=== PATIENT | female | born 1985 | race Caucasian/White ===

== ENCOUNTER 2019-10-14 02:17 | Inpatient (IN) | payer BC, SELFPAY ==
[2019-10-13 08:23] VITALS: TEMP 36.4
[2019-10-13 09:53] VITALS: TEMP 36.3
[2019-10-14] VITALS (81 sets, daily range): BP systolic 70–125; BP diastolic 25–94; PULSE 46–96; RESP 16–18; TEMP 35.9–36.8; O2SAT 97–100; BMI 22.9
--- NOTE | 2019-10-14 03:45 | LDADM ---
This patient, Lucretia Daniel, was admitted to Labor/Delivery/Recovery 120 on 10/14/19 at 02:17. Plans for labor, pain management and were discussed with patient. Patient/family oriented to hospital policies and general routines including ID bracelet, bed and alarms, visiting hours, pain management, procedures, bathroom and other care routines, personal items, smoking policy, room service/diet and guest tray routines, security routines, and visiting hours. Patient/Family are encouraged to report perceived risks to care and to ask questions if they do not understand what they are told or what they should do. See OBIX for further documentation.
[2019-10-14 03:59] LABS: Basophils Percent Auto 0.5 % (0.2-1.2); Eosinophils Absolute Auto 0.2 K/mm3 (0-0.3); Eosinophils Percent Auto 2.4 % (0-4.4); Hematocrit 36.5 % (37.0-47.0); Hemoglobin 12.1 g/dL (12.0-15.0); Immature Granulocyte Absolute 0.03 K/mm3 (0.00-0.031); Immature Granulocyte Percent A 0.4 % (0-0.5); Lymphocytes Absolute Auto 0.94 K/mm3 (0.9-3.2); Lymphocytes Percent Auto 11.7 % (18.3-44.2); Mean Corpuscular HGB Conc 33.2 g/dl (32-36); Mean Corpuscular Hemoglobin 32.4 pg (26-34); Mean Corpuscular Volume 97.9 fl (80-100); Mean Platelet Volume 10.3 fl (7.4-10.4); Monocytes Absolute Auto 0.7 K/mm3 (0.1-0.6); Monocytes Percent Auto 8.8 % (2.6-8.5); Neutrophils Absolute Auto 6.1 K/mm3 (1.3-6.7); Neutrophils Percent Auto 76.2 % (45.5-73.1); Platelet Count Result 216 k/mm3 (150-375); Red Blood Count 3.73 M/mm3 (4.2-5.4); Red Cell Distribution Width 13.6 % (11.5-14.5); White Blood Count 8.1 K/mm3 (4.5-10.0)
[2019-10-14] MEDS: LACTATED RINGERS 1,000 ML 125 ML IV CONT (05:20)
[2019-10-14] MEDS: ceFAZolin 2 GM/D5W 50 ML 2 GM/50 ML BAG IVPB ×2 (05:48→07:31)
--- NOTE | 2019-10-14 07:15 | WPDANESEPPF ---
Anes - Initial Pre Proc Eval Procedure: Operation Date: 10/16/19 12:00 Proposed Procedures p Repeat Section - Lalo Adams MD Date/Time: 10/14/19 07:15 Surgeon: Lalo Adams MD Pre Op Diagnosis: Leaking Patient Data Age: 34 Gender: F Height: 5 ft 9 in Weight: 70.5 kg Last Vital Signs Pulse 96 10/14/19 06:31 BP 117/81 10/14/19 06:31 Allergies Allergy/AdvReac Type Severity Reaction Status Date / Time pollen extracts Allergy Wheezing Verified 09/24/19 14:49 Home Medications Medication Instructions Recorded Confirmed Type albuterol sulfate 2 puff INHALATION QID PRN 09/24/19 09/24/19 History levothyroxine 100 mcg PO DAILY 09/24/19 09/24/19 History Laboratory Tests 10/14/19 10/14/19 10/14/19 03:53 03:53 03:53 WBC 8.1 K/mm3 K/mm3 (4.5-10.0) RBC 3.73 M/mm3 L M/mm3 (4.2-5.4) Hgb 12.1 g/dL g/dL (12.0-15.0) Hct 36.5 % L % (37.0-47.0) MCV 97.9 fl fl (80-100) MCH 32.4 pg pg (26-34) MCHC 33.2 g/dl g/dl (32-36) RDW 13.6 % % (11.5-14.5) Plt Count 216 k/mm3 k/mm3 (150-375) MPV 10.3 fl fl (7.4-10.4) Immature Gran % (Auto) 0.4 % % (0-0.5) Neut % (Auto) 76.2 % H % (45.5-73.1) Lymph % (Auto) 11.7 % L % (18.3-44.2) [place] % (Auto) 8.8 % H % (2.6-8.5) Eos % (Auto) 2.4 % % (0-4.4) Baso % (Auto) 0.5 % % (0.2-1.2) Lymph # (Auto) 0.94 K/mm3 K/mm3 (0.9-3.2) [place] # (Auto) 0.7 K/mm3 H K/mm3 (0.1-0.6) Eos # (Auto) 0.2 K/mm3 K/mm3 (0-0.3) Baso # (Auto) 0.0 K/mm3 K/mm3 (0.0-0.1) Abs Immat Gran (auto) 0.03 K/mm3 K/mm3 (0.00-0.031) Absolute Neuts (auto) 6.1 K/mm3 K/mm3 (1.3-6.7) Absolute Nucleated RBC 0.0 K/mm3 K/mm3 (0.0-0.012) Nucleated RBC % 0.0 % % (0.0-0.2) RPR Pending Blood Type A Positive Antibody Screen Negative Patient hx anesthesia problems: none Family hx anesthesia problems: none PMFSH Past Medical History Medical History (Updated 10/14/19 @ 07:15 by Johnny Reyes MD) Hypothyroidism Surgical History Surgical History (Updated 10/14/19 @ 07:16 by Johnny Reyes MD) History of section Family History Family History Mother Parkinsons Social History Social History Smoking status: Former smoker Second hand tobacco smoke exposure: No Gender identity (if verbalized by the patient): Female Spiritual care concerns: No Anes - Eval Final PreProcedure Day of Procedure 10/14/19 07:15 Patient weight: normal Heart: regular rate and rhythm Lungs: clear to auscultation Airway: Mallampati scale class II Neurological: alert and oriented Last oral intake: >/= 8 hours ASA classification: II Emergent: no Anesthetic plan: proceed Anesthesia type and monitoring: regional spinal and standard monitoring Informed Consent: The patient's anesthetic plan and its attendant risks and benefits were discussed with the patient/family/POA. Questions were solicited and answers provided to the satisfaction of the patient/family/POA.
--- NOTE | 2019-10-14 07:31 | WPDOBADMIT ---
Obstetrics - Admit Note Admission Note: record reviewed. Additions to the history and/or subsequent changes in the physical findings follow. 34 y/o at 38 6/7 weeks here with gush of clear fluid. SROM confirmed here. GBS pos. AVSS NST reactive TOCO: Contractions every 2-3 min ABD soft, nontender, gravid, vertex EXT nontender Cervix closed. Gross ROM. A: IUP at term with SROM, GBS pos. Prior , desires repeat. P: Offered repeat CS. Reviewed risks, benefits, alternatives in detail. She understands and elects to proceed.
--- NOTE | 2019-10-14 07:33 | PM.IMHP ---
H&P: HPI History of Present Illness Chief complaint: Leaking Narrative: 34 y/o at 38 6/7 weeks here with SROM. GBS pos. Review of Systems Review of Systems: All systems reviewed & are unremarkable except as noted in HPI and below PMFSH Past Medical History Medical History Hypothyroidism Surgical History Surgical History History of section Family History Family History Mother Parkinsons Social History Social History Smoking status: Former smoker Second hand tobacco smoke exposure: No Gender identity (if verbalized by the patient): Female Spiritual care concerns: No Comments Past OB: Prior CS twins after SROM at 36 weeks. SAB resulting in D&C. Meds Home Medications and Allergies Home Medications Medication Instructions Recorded Confirmed Type albuterol sulfate 2 puff INHALATION QID PRN 09/24/19 09/24/19 History levothyroxine 100 mcg PO DAILY 09/24/19 09/24/19 History Allergies Allergy/AdvReac Type Severity Reaction Status Date / Time pollen extracts Allergy Wheezing Verified 09/24/19 14:49 Vital Signs Vital Signs - 24 hr 10/14/19 02:46 10/14/19 03:01 10/14/19 03:16 Pulse Rate 69 67 66 Blood Pressure 107/73 113/79 117/74 10/14/19 03:31 10/14/19 04:01 10/14/19 04:16 Pulse Rate 67 79 66 Blood Pressure 124/79 113/73 110/77 10/14/19 04:46 10/14/19 05:01 10/14/19 05:16 Pulse Rate 77 69 67 Blood Pressure 101/69 102/61 125/73 10/14/19 05:31 10/14/19 05:45 10/14/19 06:02 Pulse Rate 71 71 64 Blood Pressure 85/55 L 104/70 116/76 10/14/19 06:17 10/14/19 06:31 Pulse Rate 70 96 Blood Pressure 99/61 L 117/81 Exam Const: Orientation/consciousness: patient oriented x3 Other: Well-developed, well-nourished female in no acute distress. Neck: Thyroid: thyroid normal Lymphatic: no lymphadenopathy noted (in neck, axilla or inguinal nodes) Resp: Effort & Inspection: normal respiratory effort Auscultation: clear to auscultation bilaterally Cardio: Rate: regular rate Rhythm: regular rhythm Heart sounds: S1 normal heart sound present and S2 normal heart sound present GI: Other: ABD: Soft, nontender, nondistended. Gravid. NST reactive. TOCO: contractions every 2-3 min. : General: Yes no CVA tenderness Other: Cervix closed / thick. Gross ROM. Back/Spine/Pelvis: Back: no CVA tenderness Skin: General skin exam: normal color and no rashes or lesions noted Neuro: General: patient oriented x3 Extrem: Other: Extremities: nontender with no edema Psych: Mental Status: mental status grossly normal Affect: normal affect H&P: Results Labs Labs: Short CBC 10/14/19 Range/Units 03:53 WBC 8.1 (4.5-10.0) K/mm3 Hgb 12.1 (12.0-15.0) g/dL Hct 36.5 L (37.0-47.0) % Plt Count 216 (150-375) k/mm3 Assessment and Plan Assessment and plan (1) SROM (spontaneous rupture of membranes): Status: Acute Assessment and Plan: Offered repeat . She understands risks of surgery to include risks of anesthesia, risks of pain, infection, bleeding, blood products, thromboembolic phenomena and damage to adjacent structures such as bowel, bladder, ureters, blood vessels and nerves. She understands all these risks and elects to proceed with surgery. (2) GBS bacteriuria: Code(s): R82.71 - Bacteriuria Status: Acute
--- NOTE | 2019-10-14 08:21 | P.PCNOB_ITS ---
OB - Delivery Note Procedure Delivery date: 10/14/19 Procedure: Procedures Operation Date: 10/16/19 12:00 <No data on this case meets the specified criteria> Specimen: Yes (cord blood) Estimated blood loss (mL): 575 Anesthesia type: Spinal Disposition: PACU Complications: None Narrative: The patient was taken to the operating room where she was prepared and draped in the usual sterile fashion in dorsal supine position with a leftward tilt. She received cefazolin preoperatively. Spinal anesthesia was found to be adequate. A Pfannenstiel skin incision was made, excising the previous scar. The incision was carried through to the underlying layer of the fascia. The fascia was incised in the midline and the incision was extended laterally. The fascia was dissected free of the underlying rectus muscles. The rectus muscles were in the midline. The peritoneum was identified, tented up and entered sharply. The peritoneal incision was extended superiorly and inferiorly with good visualization of the bladder. The bladder blade was placed. The vesicouterine peritoneum was identified, tented up and entered sharply. The incision was extended laterally and the bladder flap was developed. The bladder blade was replaced. The uterus was then incised sharply in a transverse fashion along the lower uterine segment. The incision was extended laterally. The infant's head was delivered atraumatically to the sterile field, followed by the body. The nose and mouth were bulb suctioned. After a delay, the cord was clamped and cut. The infant was handed off the field. Cord blood was collected. The placenta was removed manually and was passed off the field. The uterus was exteriorized and cleared of all clots and debris. The uterine incision was reapproximated using 0 Monocryl in a running, locked fashion. Excellent hemostasis resulted as did excellent reapproximation of the normal anatomy. The uterus was returned the abdomen. The pelvis was irrigated copiously with warmed normal saline. Rigorous hemostasis was assured. The fascial layer was reapproximated using 0 Vicryl in a running fashion. The skin was closed with a running, subcuticular stitch of 4 0 Vicryl. Dermaflex was applied externally. Sponge, lap, needle and instrument counts were correct. The patient was taken to the recovery room in stable condition. The infant went to the nursery in stable condition. I was present and scrubbed the entire procedure. [place] Baby Date of : 10/14/19 Time of : 07:54 Weeks of gestation at delivery: 38 Infant gender: Male Weight (pounds): 7 Weight (ounces): 10 Placenta delivery description: Manual Removal and Normal Configuration cord vessel description: 3 Vessels score one minute: 9 score five minutes: 9
--- NOTE | 2019-10-14 08:25 | PM.OBDSVD ---
DS: Diagnosis Admitting Diagnosis Admitting Diagnosis: SROM Discharge Diagnosis (1) GBS bacteriuria: Code(s): R82.71 - Bacteriuria Status: Acute (2) History of section: Code(s): Z98.891 - History of uterine scar from previous surgery Status: Acute (3) SROM (spontaneous rupture of membranes): Status: Acute OB - DS: Summary OB Procedures : None OB Procedures Intrapartum: OB Procedures: : None Peripartum Data Procedures: Procedures Operation Date: 10/16/19 12:00 <No data on this case meets the specified criteria> Time Spent with Patient Time attestation: Total time spent providing and/or coordinating discharge services: DS: Data Data Completed and Pending Labs on day of discharge: Labs from last 24 hours 10/14/19 10/14/19 10/14/19 03:53 03:53 03:53 WBC 8.1 RBC 3.73 L Hgb 12.1 Hct 36.5 L MCV 97.9 MCH 32.4 MCHC 33.2 RDW 13.6 Plt Count 216 MPV 10.3 Immature Gran % (Auto) 0.4 Neut % (Auto) 76.2 H Lymph % (Auto) 11.7 L [place] % (Auto) 8.8 H Eos % (Auto) 2.4 Baso % (Auto) 0.5 Lymph # (Auto) 0.94 [place] # (Auto) 0.7 H Eos # (Auto) 0.2 Baso # (Auto) 0.0 Abs Immat Gran (auto) 0.03 Absolute Neuts (auto) 6.1 Absolute Nucleated RBC 0.0 Nucleated RBC % 0.0 RPR Pending Blood Type A Positive Antibody Screen Negative Discharge Plan Discharge Attending physician on discharge: Lalo Adams Discharging Clinician: Lalo Adams Patient Disposition: Home, Self-Care Activity: may shower, may drive after 2 weeks and pelvic rest Diet: regular Wound Care Instructions: incision open to air Discharge Instructions: Call or return if temperature above 100.4? F, increased abdominal pain, increased vaginal bleeding or any new problems. Stand Alone Forms: General Discharge Information Follow-up/Referrals: Lalo Adams MD [Physician] - (4 weeks) Discharge Medications: New ibuprofen 600 mg tablet 600 mg PO Q6H PRN (Reason: cramps) Qty: 30 RF: 0 hydrocodone-acetaminophen [[place]] 5-325 mg tablet 1 - 2 tablet PO Q6H PRN (Reason: pain) Qty: 30 RF: 0 No Action levothyroxine 100 mcg Tablet 100 mcg PO DAILY RF: 0 albuterol sulfate 90 mcg/actuation Hfa Aerosol Inhaler 2 puff INHALATION QID PRN (Reason: wheezing) RF: 0 Date of admission: 10/14/19 02:17 Primary Care Provider: Sathya Albert Admitting Provider: Lalo Adams Attending physician on admission: Lalo Adams
[2019-10-14] MEDS: OXYTOCIN 30 UNITS/NS 500 ML 30 UNITS/500 ML BAG 125 UNITS IV CONT (10:14)
[2019-10-14 10:31] LABS: Rapid Plasma Reagin Non-Reactive (NonReactive)
[2019-10-14] MEDS: KETOROLAC 30 MG/ML VIAL (*BKC) IV PUSH ×2 (11:58→18:23)
[2019-10-14] MEDS: MORPHINE SULFATE 4 MG/ML INJ IV PUSH ×2 (11:58→15:47)
--- NOTE | 2019-10-14 13:32 | PC.NURSE ---
Patient transferred to post room #291 via per stretcher. Support person present. Oriented to unit, room, information board, rooming in, admission packet and security measures. Patient verbalizes understanding.
[2019-10-14] MEDS: SIMETHICONE 80 MG TAB.CHEW PO (15:48)
[2019-10-14] MEDS: DOCUSATE SODIUM 100 MG CAPSULE PO (15:48)
--- NOTE | 2019-10-14 15:55 | PC.NURSE ---
Consulted with patient, mother reports infant is eagerly latching without difficulties or discomfort. . Both nipples are clear no reddened areas. Nipple care reviewed. Reviewed feeding cues, frequencies, duration of feedings, feeding elimination flow sheet, and signs of adequate intake. Requested mother to call out for RN assistance if she is unable to latch infant for feeding or she has discomfort with nursing. Instructed feeding should be initiated three hours from start of last feeding or if feeding cues are noted before. Mother voiced understanding of information shared.
[2019-10-15] MEDS: KETOROLAC 30 MG/ML VIAL (*BKC) IV PUSH ×2 (00:22→07:24)
[2019-10-15 00:30] VITALS: BP 92/58; PULSE 64; RESP 16; TEMP 36.1; O2SAT 100
[2019-10-15 04:20] VITALS: BP 101/65; PULSE 54; RESP 16; TEMP 36.2; O2SAT 100
[2019-10-15 05:37] LABS: Basophils Absolute Auto 0.1 K/mm3 (0.0-0.1); Basophils Percent Auto 0.6 % (0.2-1.2); Eosinophils Absolute Auto 0.4 K/mm3 (0-0.3); Eosinophils Percent Auto 4.7 % (0-4.4); Immature Granulocyte Absolute 0.02 K/mm3 (0.00-0.031); Immature Granulocyte Percent A 0.3 % (0-0.5); Lymphocytes Absolute Auto 1.05 K/mm3 (0.9-3.2); Lymphocytes Percent Auto 13.2 % (18.3-44.2); Mean Corpuscular HGB Conc 32.3 g/dl (32-36); Mean Corpuscular Hemoglobin 32.7 pg (26-34); Mean Corpuscular Volume 101.3 fl (80-100); Mean Platelet Volume 10.4 fl (7.4-10.4); Monocytes Absolute Auto 0.4 K/mm3 (0.1-0.6); Monocytes Percent Auto 5.5 % (2.6-8.5); Neutrophils Percent Auto 75.7 % (45.5-73.1); Platelet Count Result 200 k/mm3 (150-375); Red Blood Count 3.06 M/mm3 (4.2-5.4); Red Cell Distribution Width 13.9 % (11.5-14.5); White Blood Count 7.9 K/mm3 (4.5-10.0)
[2019-10-15 07:20] VITALS: BP 95/64; PULSE 76; RESP 16; TEMP 36.8; O2SAT 99
[2019-10-15] MEDS: MULTIVIT/MIN/PREN/FOL AC/IRON TABLET 1 TAB PO (07:23)
[2019-10-15] MEDS: DOCUSATE SODIUM 100 MG CAPSULE PO ×2 (07:25→17:03)
[2019-10-15] MEDS: SIMETHICONE 80 MG TAB.CHEW PO ×2 (11:01→17:02)
--- NOTE | 2019-10-15 11:39 | WPDANLDPN2 ---
Anes-Prog Note L&D Date/Time: 10/15/19 11:39 Comfortable throughout: labor Neuraxial method: epidural Epidural/Spinal procedure site: clean & non-tender Neuro status: Neuro function grossly intact. Cardiovascular status: normal Respiratory status: normal Airway patency: baseline Mental status: baseline Post-Op hydration status: normal Vital Signs: Last Vital Signs Temp 98.2 F 10/15/19 07:20 Pulse 76 10/15/19 07:20 Resp 16 10/15/19 07:20 BP 95/64 L 10/15/19 07:20 Pulse Ox 99 10/15/19 07:20 I/O: Intake & Output 10/14/19 10/15/19 10/15/19 23:59 07:59 15:59 Intake Total 2300 1150 Output Total 2900 1400 Balance -600 -250 Post-procedural complaints: none Patient feedback: Patient satisfied with anesthetic care.
--- NOTE | 2019-10-15 11:40 | WPDANLDNPN2 ---
Anes-Prog Note L&D-Neuraxial Date/Time: 10/15/19 11:40 Neuraxial medications: intrathecal PF morphine Opiod-related complaints: none Patient feedback: Patient satisfied with post-operative pain management.
--- NOTE | 2019-10-15 13:28 | P.PNOB_ITS ---
OB - PN: Subj Subjective Date/time seen: 10/15/19 13:28 Narrative: Pain OK. Tolerating diet. Desires circumcision for son. OB - PN: Obj Data Labs CBC & Chem 7: 10/15/19 04:28 Labs: Laboratory Results - last 24 hr 10/15/19 04:28 WBC 7.9 RBC 3.06 L Hgb 10.0 L Hct 31.0 L MCV 101.3 H MCH 32.7 MCHC 32.3 RDW 13.9 Plt Count 200 MPV 10.4 Immature Gran % (Auto) 0.3 Neut % (Auto) 75.7 H Lymph % (Auto) 13.2 L [place] % (Auto) 5.5 Eos % (Auto) 4.7 H Baso % (Auto) 0.6 Lymph # (Auto) 1.05 [place] # (Auto) 0.4 Eos # (Auto) 0.4 H Baso # (Auto) 0.1 Abs Immat Gran (auto) 0.02 Absolute Neuts (auto) 6.0 Absolute Nucleated RBC 0.0 Nucleated RBC % 0.0 OB - PN A/P Plan Comments: A: POD#1, doing well. P: Routine care. Reviewed circ. Exam Psych: Other: AVSS I/O OK ABD soft, nontender, fundus firm. Incision c/d/i. EXT nontender
[2019-10-15] MEDS: IBUPROFEN 600 MG TABLET PO ×2 (14:28→20:29)
[2019-10-15 18:57] VITALS: BP 90/63; PULSE 68; RESP 18; TEMP 36.3; O2SAT 98
[2019-10-16] MEDS: IBUPROFEN 600 MG TABLET PO ×2 (03:05→10:29)
[2019-10-16] MEDS: MULTIVIT/MIN/PREN/FOL AC/IRON TABLET 1 TAB PO (07:07)
[2019-10-16 07:25] VITALS: BP 105/69; PULSE 68; RESP 16; TEMP 36.2; O2SAT 100
--- NOTE | 2019-10-16 09:20 | PM.OBPNVD ---
OB - PN: Subj Subjective Date/time seen: 10/16/19 09:20 Narrative: Pain OK. Tolerating diet. Would like to go home. OB - PN: Obj Data Labs CBC & Chem 7: 10/15/19 04:28 OB - PN A/P Plan Comments: A: POD#2, doing well. P: Home to f/u 4 weeks. Exam Psych: Other: AVSS ABD soft, nontender, fundus firm. Incision c/d/i. EXT nontender
--- NOTE | 2019-10-16 10:45 | PC.NURSE ---
Mother is able to independently latch infant with appropriate positioning/alignment. She denies any nipple discomfort, is feeding as required and waking to feed if needed. has had 8 effective feedings in the past 24 hours, and is currently meeting outcomes for weight, output, jaundice and feeding frequencies. Mother states she feels confident to continue effective at home. Reviewed transition to breast milk, signs of adequate intake, and engorgement/relief. Instructed to call ICP if intake/output less than required. Reviewed regular medications mother is taking. Information provided per Ashley. Reviewed community resources on the [facility] website and in the Mom/Baby guide. Information on outpatient services provided. Mother has no further questions at this time.
[2019-10-17 08:36] VITALS: BP 109/63; PULSE 72; RESP 18; TEMP 36.8
== END 2019-10-16 11:30 | disposition home or self-care (01) | DRG 788 ==
LOC: ANHLDR 08:27 → ANHOB2 11:12
PROVIDERS: Admitting Provider Obstetrics & Gynecology; PCP Emergency Medicine; Visit Provider Obstetrics & Gynecology
PROC: 10D00Z1 Extraction of Products of Conception, Low, Open Approach (ICD-10-PCS; CPT 59514; principal; 2019-10-14 07:30)
DX: O34.211 Maternal care for low transverse scar from previous cesarean delivery (principal); Z37.0 Single live birth; O99.284 Endocrine, nutritional and metabolic diseases complicating childbirth; E03.9 Hypothyroidism, unspecified; O99.824 Streptococcus B carrier state complicating childbirth; Z87.891 Personal history of nicotine dependence; Z3A.38 38 weeks gestation of pregnancy
CPT/HCPCS: 36415; 85025; 86592; 86850; 86900; 86901; A9270; J0131; J0690; J1885; J2270; J2274; J2590; J3010; J7120

== ENCOUNTER → 2019-10-23 15:45 | Outpatient (CLI) | payer BC, SELFPAY ==
--- NOTE | ~2019-10-23 | US_ITS ---
US thyroid INDICATION: Hypothyroidism TECHNIQUE: Real-time sonographic images of the thyroid gland were obtained. COMPARISON: No prior studies for comparison. FINDINGS: The right thyroid lobe measures 4.3 x 1.1 x 1.2 cm. The left thyroid lobe measures 4 x 1.9 x 0.8 cm. There is normal echotexture and echogenicity throughout the thyroid gland. No discrete nod ules identified. Normal vascular flow is present. IMPRESSION: 1. Normal thyroid without discrete nodule or abnormal vascularity. Reviewed, dictated and finalized at location A.
== END ==
PROVIDERS: PCP Emergency Medicine; Visit Provider Emergency Medicine
DX: E03.9 Hypothyroidism, unspecified (principal)
CPT/HCPCS: 76536

== ENCOUNTER 2020-10-04 08:01 | Outpatient (RCR) | payer BC, SELFPAY ==
[2020-09-12 12:26] VITALS: BP 99/58; PULSE 81
[2020-09-27 08:48] VITALS: BP 101/69; PULSE 65
[2020-10-04 08:24] VITALS: BP 94/65; PULSE 80
== END 2020-10-16 07:14 | disposition home or self-care (01) ==
LOC: ANHOBOP 08:01
PROVIDERS: PCP Emergency Medicine; Visit Provider Obstetrics & Gynecology
DX: O30.003 Twin pregnancy, unspecified number of placenta and unspecified number of amniotic sacs, third trimester (principal); Z3A.33 33 weeks gestation of pregnancy; Z3A.35 35 weeks gestation of pregnancy; Z3A.36 36 weeks gestation of pregnancy
CPT/HCPCS: 59025

== ENCOUNTER 2020-10-08 11:22 | Observation (INO) | payer BC, SELFPAY ==
[2020-10-08 11:40] VITALS: BMI 24.5
--- NOTE | 2020-10-08 12:00 | OBADM ---
This patient, Lucretia Daniel, admitted to the OB room 103 at 1122 for observation for contractions. Patient/family oriented to hospital policies and general routines including ID bracelet, bed and alarms, visiting hours, pain management, procedures, bathroom and other care routines, personal items, smoking policy, room service/diet, and visiting hours. Patient/Family are encouraged to report perceived risks to care and to ask questions if they do not understand what they are told or what they should do.
[2020-10-08 12:30] VITALS: TEMP 36.3
--- NOTE | 2020-10-13 13:39 | PM.OBTRLD ---
OB - Triage/Final Diagnosis Visit Information Comments/Additional reasons for admission: I have assessed the risk for this patient, Lucretia Daniel, and determined that she would benefit from observation care. Final Diagnosis (1) contractions: Code(s): O47.9 - False labor, unspecified Status: Acute
== END 2020-10-08 13:18 | disposition home or self-care (01) ==
PROVIDERS: Admitting Provider Obstetrics & Gynecology; PCP Emergency Medicine; Visit Provider Obstetrics & Gynecology
DX: O47.1 False labor at or after 37 completed weeks of gestation (principal); Z3A.37 37 weeks gestation of pregnancy
CPT/HCPCS: G0378; G0379

== ENCOUNTER 2020-10-14 11:53 | Outpatient (CLI) | payer BC, SELFPAY ==
[2020-10-14 12:30] LABS: Basophils Percent Auto 0.5 % (0.2-1.2); Eosinophils Absolute Auto 0.1 K/mm3 (0-0.3); Eosinophils Percent Auto 1.8 % (0-4.4); Hematocrit 35.8 % (37.0-47.0); Hemoglobin 11.9 g/dL (12.0-15.0); Immature Granulocyte Absolute 0.02 K/mm3 (0.00-0.031); Immature Granulocyte Percent A 0.3 % (0-0.5); Lymphocytes Absolute Auto 0.87 K/mm3 (0.9-3.2); Lymphocytes Percent Auto 13.1 % (18.3-44.2); Mean Corpuscular HGB Conc 33.2 g/dl (32-36); Mean Corpuscular Hemoglobin 32.7 pg (26-34); Mean Corpuscular Volume 98.4 fl (80-100); Mean Platelet Volume 10.5 fl (7.4-10.4); Monocytes Absolute Auto 0.5 K/mm3 (0.1-0.6); Monocytes Percent Auto 7.9 % (2.6-8.5); Neutrophils Absolute Auto 5.1 K/mm3 (1.3-6.7); Neutrophils Percent Auto 76.4 % (45.5-73.1); Platelet Count Result 173 k/mm3 (150-375); Red Blood Count 3.64 M/mm3 (4.2-5.4); Red Cell Distribution Width 13.5 % (11.5-14.5); White Blood Count 6.6 K/mm3 (4.5-10.0)
[2020-10-14 13:26] LABS: Rapid Plasma Reagin Non-Reactive (NonReactive)
== END 2020-10-14 11:54 | disposition home or self-care (01) ==
LOC: ANHLAB 11:56
PROVIDERS: PCP Emergency Medicine; Visit Provider Obstetrics & Gynecology
DX: Z01.818 Encounter for other preprocedural examination (principal)
CPT/HCPCS: 36415; 85025; 86592; 86850; 86900; 86901

== ENCOUNTER 2020-10-15 09:51 | Inpatient (IN) | payer BC, SELFPAY ==
[2020-10-15] VITALS (63 sets, daily range): BP systolic 82–163; BP diastolic 46–107; PULSE 35–97; RESP 12–20; TEMP 36.1–36.7; O2SAT 92–100; BMI 24.7
[2020-10-15] MEDS: LACTATED RINGERS 1,000 ML 125 ML IV CONT (10:27)
--- NOTE | 2020-10-15 10:37 | WPDANESEPPF ---
Anes - Initial Pre Proc Eval Procedure: Operation Date: 10/15/20 12:00 Proposed Procedures p Repeat Section With Bilateral Tubal Ligation With Fallopian Rings - Lalo Adams MD Date/Time: 10/15/20 10:37 Surgeon: Lalo Adams MD Pre Op Diagnosis: c/s Patient Data Age: 35 Gender: F Height: 1.75 m Weight: 76 kg Last Vital Signs Pulse 81 10/15/20 10:15 BP 103/81 10/15/20 10:15 Pulse Ox 100 10/15/20 10:35 Allergies Allergy/AdvReac Type Severity Reaction Status Date / Time pollen extracts Allergy Wheezing Verified 09/24/19 14:49 Home Medications Medication Instructions Recorded Confirmed Type albuterol sulfate 2 puff INHALATION QID PRN 09/24/19 10/08/20 History levothyroxine 100 mcg PO DAILY 09/24/19 10/08/20 History PNV cmb#95-ferrous fumarate-FA 1 tablet PO DAILY 09/27/20 10/08/20 History [] cholecalciferol (vitamin D3) 5,000 unit PO PRN PRN 09/27/20 10/08/20 History [Vitamin D3] Laboratory Tests 10/15/20 10:16 HIV 1&2 Ab/P24 Ag 4thGn Pending Patient hx anesthesia problems: none Family hx anesthesia problems: none PMFSH Past Medical History Medical History (Updated 10/15/20 @ 10:37 by Miles Sorto MD) Asthma Hypothyroidism Surgical History Surgical History (Updated 10/14/19 @ 07:36 by Lalo Adams MD) History of section Family History Family History Mother Parkinsons Social History Social History Smoking status: Former smoker Second hand tobacco smoke exposure: No Substance use: former Gender identity (if verbalized by the patient): Female Spiritual care concerns: No Anes - Eval Final PreProcedure Day of Procedure 10/15/20 10:37 Patient weight: overweight Heart: regular rate and rhythm Lungs: clear to auscultation and normal air movement Airway: Mallampati scale class II Neurological: alert and oriented Last oral intake: >/= 8 hours ASA classification: II Emergent: no Anesthetic plan: proceed Anesthesia type and monitoring: regional spinal Informed Consent: The patient's anesthetic plan and its attendant risks and benefits were discussed with the patient/family/POA. Questions were solicited and answers provided to the satisfaction of the patient/family/POA.
--- NOTE | 2020-10-15 10:49 | LDADM ---
This patient, Lucretia Daniel, was admitted to Labor/Delivery/Recovery 120 on 10/15/20 at 09:51. Plans for labor, pain management and were discussed with patient. Patient/family oriented to hospital policies and general routines including ID bracelet, bed and alarms, visiting hours, pain management, procedures, bathroom and other care routines, personal items, smoking policy, room service/diet and guest tray routines, infant security routines,call light, and visiting hours. Patient/Family are encouraged to report perceived risks to care and to ask questions if they do not understand what they are told or what they should do. See OBIX for further documentation.
[2020-10-15 11:23] LABS: HIV 1/2 Ab P24 Ag Result Negative (Negative)
--- NOTE | 2020-10-15 11:42 | PM.IMHP ---
H&P: HPI History of Present Illness Date/Time: 10/15/20 11:42 35 y/o at 38 weeks with di/di twins, prior . Here for repeat LTCS, also desiring permanent contraception with concurrent tubal ligation. Good movement. Rare contractions. GBS bacteruria. Chief Complaint: Here for c section Review of Systems Review of Systems: All systems reviewed & are unremarkable except as noted in HPI and below PMFSH Past Medical History Medical History Asthma Hypothyroidism Surgical History Surgical History History of section Family History Family History Mother Parkinsons Social History Social History Smoking status: Never smoker Second hand tobacco smoke exposure: No Substance use: former Gender identity (if verbalized by the patient): Female Spiritual care concerns: No Meds Home Medications and Allergies Home Medications Medication Instructions Recorded Confirmed Type albuterol sulfate 2 puff INHALATION QID PRN 09/24/19 10/08/20 History levothyroxine 100 mcg PO DAILY 09/24/19 10/08/20 History PNV cmb#95-ferrous fumarate-FA 1 tablet PO DAILY 09/27/20 10/08/20 History [] cholecalciferol (vitamin D3) 5,000 unit PO PRN PRN 09/27/20 10/08/20 History [Vitamin D3] Allergies Allergy/AdvReac Type Severity Reaction Status Date / Time pollen extracts Allergy Wheezing Verified 09/24/19 14:49 Vital Signs Vital Signs - 24 hr 10/15/20 10:11 10/15/20 10:13 10/15/20 10:15 Temperature Pulse Rate 87 81 Blood Pressure 82/46 L 103/81 Pulse Oximetry 100 10/15/20 10:16 10/15/20 10:21 10/15/20 10:25 Temperature Pulse Rate Blood Pressure Pulse Oximetry 100 100 100 10/15/20 10:30 10/15/20 10:35 10/15/20 10:40 Temperature Pulse Rate Blood Pressure Pulse Oximetry 100 100 100 10/15/20 10:45 10/15/20 10:50 10/15/20 10:55 Temperature Pulse Rate Blood Pressure Pulse Oximetry 100 100 100 10/15/20 11:28 Temperature 36.5 C Pulse Rate Blood Pressure Pulse Oximetry Exam Const: Orientation/consciousness: patient oriented x3 Other: Well-developed, well-nourished female in no acute distress. Neck: Thyroid: thyroid normal Lymphatic: no lymphadenopathy noted (in neck, axilla or inguinal nodes) Resp: Effort & Inspection: normal respiratory effort Auscultation: clear to auscultation bilaterally Cardio: Rate: regular rate Rhythm: regular rhythm Heart sounds: S1 normal heart sound present and S2 normal heart sound present GI: Other: ABD: Soft, nontender, nondistended, gravid. FHR x 2. No guarding or rebound tenderness. No hepatosplenomegaly. : General: Yes no CVA tenderness Other: Cervix closed, thick. Back/Spine/Pelvis: Back: no CVA tenderness Skin: General skin exam: normal color and no rashes or lesions noted Neuro: General: patient oriented x3 Extrem: Other: Extremities: nontender with no edema Psych: Mental Status: mental status grossly normal Affect: normal affect Assessment and Plan Assessment and plan (1) History of section: Code(s): Z98.891 - History of uterine scar from previous surgery Status: Acute Assessment and Plan: A: 1) IUP at 38 weeks with di/di twins, prior , desires repeat. 2) Desired sterility 3) GBS bacteruria. P: Repeat LTCS with BTL. Cover GBS with antibiotic. She understands there are temporary methods of contraception available to her. She understands that there are nonsurgical options as well as surgical options. She understands that tubal ligation will render her permanently sterile. She understands that there is a failure rate associated with tubal ligation, as well as an inherent ectopic gestation
--- NOTE | 2020-10-15 11:55 | WPDHPUPDATE1 ---
History and Physical Update Update Date/Time: 10/15/20 11:55 History and Physical has been reviewed, including an updated exam of the patient. There are NO changes in the patient's condition. Risks, benefits, and alternatives have been discussed and questions answered. Patient agrees to proceed with procedure.
[2020-10-15] MEDS: LACTATED RINGERS 250 ML 999 ML IVPB (11:57)
[2020-10-15] MEDS: ceFAZolin 2 GM/D5W 50 ML 2 GM/50 ML BAG IVPB (11:59)
--- NOTE | 2020-10-15 13:14 | PM.OBPRVD ---
OB - Delivery Note Procedure Delivery date: 10/15/20 Procedure: Procedures Operation Date: 10/15/20 12:00 <No data on this case meets the specified criteria> Repeat low transverse delivery with concurrent bilateral tubal ligation via modified Wakefield technique Delivery monitor: external FHT and external uterine Route of delivery: Specimen: Yes (cord blood, placentas, segments of bilateral Fallopian tubes) Quantitative Blood Loss (ml): 600 Anesthesia type: Spinal Disposition: PACU Complications: None Narrative: The patient was taken to the operating room where she was prepared and draped in the usual sterile fashion in dorsal supine position with a leftward tilt. She received cefazolin preoperatively. Spinal anesthesia was found to be adequate. A Pfannenstiel skin incision was made along the previous scar line, excising the old scar and discarding it. The incision was carried through to the underlying layer of the fascia. The fascia was incised in the midline and the incision was extended laterally. The fascia was dissected free of the underlying rectus muscles. The rectus muscles were in the midline. The peritoneum was identified, tented up and entered sharply. The peritoneal incision was extended superiorly and inferiorly with good visualization of the bladder. The bladder blade was placed. The vesicouterine peritoneum was identified, tented up and entered sharply. The incision was extended laterally and the bladder flap was developed. The bladder blade was replaced. The uterus was then incised sharply in a transverse fashion along the lower uterine segment. The incision was extended laterally. The head of A was delivered atraumatically to the sterile field, followed by the body. The nose and mouth were bulb suctioned. After a delay, the cord was clamped and cut. The was handed off the field. Amniotomy of sac B was performed and the head of that infant was also delivered, followed by the body. The nose and mouth were bulb suctikon. Again, after a delay, the cord was clamped and cut. Cord blood was collected x 2. The placentas were removed manually and was passed off the field. The uterus was exteriorized and cleared of all clots and debris. The uterine incision was reapproximated using 0 Monocryl in a running, locked fashion. Excellent hemostasis resulted as did excellent reapproximation of the normal anatomy. The left fallopian tube was then identified by following it out to the fimbriated end. It was grasped in the midportion with a Bennie clamp and a loop of tube was ligated with a free tie of 0 plain gut. The tubal segment was then transected and the specimen was passed off to be sent to pathology. Hemostasis was excellent. Attention was turned to the right fallopian tube which was similarly identified, ligated and transected. Once again, excellent hemostasis resulted. The uterus was returned the abdomen. The pelvis was irrigated copiously with warmed normal saline. Rigorous hemostasis was assured. The fascial layer was reapproximated using 0 Vicryl in a running fashion. The skin was closed with a running, subcuticular stitch of 4 0 Vicryl. Dermaflex was applied externally. Sponge, lap, needle and instrument counts were correct. The patient was taken to the recovery room in stable condition. The infants went to the nursery in stable condition. I was present and scrubbed the entire procedure. [place] [facility] Weeks of gestation at delivery: 38 Twins 1: Date of : 10/15/20 Time of : 12:34 Weeks of gestation at delivery: 38 gender: Male Weight (pounds): 5 Weight (ounces): 11 presentation: vertex Placental delivery description: Manual Removal and Normal Configuration cord vessel description: Delayed Cord Clamping score one minute: 9 score five minutes: 9 2: Date of
[2020-10-15] MEDS: OXYTOCIN 30 UNITS/NS 500 ML 30 UNITS/500 ML BAG 125 UNITS IV CONT (13:37)
[2020-10-15] MEDS: LACTATED RINGERS 1,000 ML 999 ML IV CONT (13:40)
[2020-10-15] MEDS: KETOROLAC 30 MG/ML VIAL (*BKC) IV PUSH (14:53)
[2020-10-15 15:35] LABS: Hematocrit 35.7 % (37.0-47.0); Hemoglobin 11.8 g/dL (12.0-15.0)
--- NOTE | 2020-10-15 16:20 | PC.NURSE ---
Patient transferred to post room # 292 via stretcher. Support person present. Oriented to unit, room, information board, rooming in, admission packet and security measures. Patient verbalizes understanding. No barriers to learning were identified. Used one to one discussion and maternal infant guide as reference for pt education. PT verbalized understanding of such care.
[2020-10-15] MEDS: SIMETHICONE 80 MG TAB.CHEW PO (18:59)
[2020-10-15] MEDS: IBUPROFEN 600 MG TABLET PO (18:59)
[2020-10-15] MEDS: HYDROcodone/acetaminophen (*CRX) 5-325 MG TABLET 1 TAB PO (19:00)
[2020-10-15] MEDS: HYDROcodone/acetaminophen (*CRX) 10-325 MG TABLET 1 TAB PO (21:58)
[2020-10-15] MEDS: LANOLIN (LANSINOH) 7.5 GM CREAM 1 APPLIC TOPICAL (21:59)
[2020-10-16] VITALS: BP 116/79; PULSE 52; RESP 18; TEMP 36.6; O2SAT 100
[2020-10-16 00:25] VITALS: RESP 18; O2SAT 100
[2020-10-16] MEDS: IBUPROFEN 600 MG TABLET PO ×3 (01:25→17:43)
[2020-10-16] MEDS: HYDROcodone/acetaminophen (*CRX) 5-325 MG TABLET 1 TAB PO (01:26)
[2020-10-16 03:50] VITALS: BP 122/80; PULSE 54; RESP 18; RESP 20; TEMP 36.2; O2SAT 100
[2020-10-16] MEDS: LEVOTHYROXINE SODIUM 100 MCG TABLET PO (05:14)
[2020-10-16] MEDS: SIMETHICONE 80 MG TAB.CHEW PO ×4 (05:14→17:42)
[2020-10-16] MEDS: HYDROcodone/acetaminophen (*CRX) 10-325 MG TABLET 1 TAB PO ×5 (05:15→20:53)
[2020-10-16 05:42] LABS: Basophils Percent Auto 0.2 % (0.2-1.2); Eosinophils Absolute Auto 0.1 K/mm3 (0-0.3); Eosinophils Percent Auto 0.5 % (0-4.4); Hematocrit 33.2 % (37.0-47.0); Hemoglobin 10.9 g/dL (12.0-15.0); Immature Granulocyte Absolute 0.02 K/mm3 (0.00-0.031); Immature Granulocyte Percent A 0.2 % (0-0.5); Lymphocytes Absolute Auto 1.15 K/mm3 (0.9-3.2); Lymphocytes Percent Auto 11.2 % (18.3-44.2); Mean Corpuscular HGB Conc 32.8 g/dl (32-36); Mean Corpuscular Hemoglobin 32.2 pg (26-34); Mean Corpuscular Volume 97.9 fl (80-100); Mean Platelet Volume 10.9 fl (7.4-10.4); Monocytes Absolute Auto 0.7 K/mm3 (0.1-0.6); Monocytes Percent Auto 6.6 % (2.6-8.5); Neutrophils Absolute Auto 8.4 K/mm3 (1.3-6.7); Neutrophils Percent Auto 81.3 % (45.5-73.1); Platelet Count Result 167 k/mm3 (150-375); Red Blood Count 3.39 M/mm3 (4.2-5.4); Red Cell Distribution Width 13.2 % (11.5-14.5); White Blood Count 10.3 K/mm3 (4.5-10.0)
[2020-10-16 07:20] VITALS: BP 117/81; PULSE 65; RESP 18; TEMP 36.3; O2SAT 100
--- NOTE | 2020-10-16 07:44 | PM.OBPNVD ---
OB - PN: Subj Subjective Date/time seen: 10/16/20 07:44 Interval history: Patient doing well this AM. She is ambulating out of bed. She is tolerating PO. She reports adequate pain control. Her bleeding is normal and she reports normal lochia. She denies fever, chills, N/V. She has not yet passed flatus. Patient comments: no complaints and pain well controlled; no flatus present OB - PN: Obj Data Labs CBC & Chem 7: 10/16/20 05:02 Labs: Laboratory Results - last 24 hr 10/15/20 10/15/20 10/16/20 10:16 15:28 05:02 WBC 10.3 H RBC 3.39 L Hgb 11.8 L 10.9 L Hct 35.7 L 33.2 L MCV 97.9 MCH 32.2 MCHC 32.8 RDW 13.2 Plt Count 167 MPV 10.9 H Immature Gran % (Auto) 0.2 Neut % (Auto) 81.3 H Lymph % (Auto) 11.2 L [place] % (Auto) 6.6 Eos % (Auto) 0.5 Baso % (Auto) 0.2 Lymph # (Auto) 1.15 [place] # (Auto) 0.7 H Eos # (Auto) 0.1 Baso # (Auto) 0.0 Abs Immat Gran (auto) 0.02 Absolute Neuts (auto) 8.4 H Absolute Nucleated RBC 0.0 Nucleated RBC % 0.0 HIV 1&2 Ab/P24 Ag 4thGn Negative OB - PN A/P Plan day: 1 Plan: routine care Comments: patient doing well this AM s/p leggett, voiding spontaneously tolerating PO H/H 10 continue routine PP care plan for circumcision today, risks, benefits and alternatives discussed. verbal consent obtained Time Spent With Patient Time: Total time spent is greater than 50% in coordination of care (as documented) at patient's floor/unit and/or counseling patient: Time with patient: less than 15 minutes Review of Systems Constitutional: Constitutional: Reports no additional constitutional complaints Cardiovascular: Cardiovascular: Reports no additional cardiovascular complaints Respiratory: Respiratory: Reports no additional respiratory complaints Gastrointestinal: Gastrointestinal: Reports no additional gastrointestinal complaints Genitourinary: Genitourinary: Reports no additional female genitourinary complaints Exam Const: General: comfortable and no acute distress Resp: Effort & Inspection: normal respiratory effort Auscultation: clear to auscultation bilaterally Cardio: Rate: regular rate GI: GI Palp: Yes Soft to palpation and Yes Tenderness to palpation present (GI) (appropriately tender around incision ) Auscultation: normal bowel sounds Other: fundus firm and below umbilicus Incision C/D/I Urinary Catheter: Urinary Catheter: urine clear Psych: Appearance: grossly normal Mental Status: mental status grossly normal Affect: normal affect
--- NOTE | 2020-10-16 08:00 | P.PNAN_ITS ---
Anes - Prog Note Post-Op Date/Time: 10/16/20 08:00 Cardiovascular status: normal Respiratory status: normal Airway patency: baseline Mental status: baseline Post-Op hydration status: normal Vital Signs: Last Vital Signs Temp 36.2 C L 10/16/20 03:50 Pulse 54 L 10/16/20 03:50 Resp 20 10/16/20 03:50 BP 122/80 10/16/20 03:50 Pulse Ox 100 10/16/20 03:50 Pain Score (VAS): 0 I/O: Intake & Output 10/15/20 10/16/20 10/16/20 23:59 07:59 15:59 Intake Total 2300 1000 Output Total 1850 1750 Balance 450 -750 Laboratory Tests 10/16/20 05:02 10/15/20 10/15/20 10/16/20 10:16 15:28 05:02 WBC 10.3 H RBC 3.39 L Hgb 11.8 L 10.9 L Hct 35.7 L 33.2 L MCV 97.9 MCH 32.2 MCHC 32.8 RDW 13.2 Plt Count 167 MPV 10.9 H Immature Gran % (Auto) 0.2 Neut % (Auto) 81.3 H Lymph % (Auto) 11.2 L [place] % (Auto) 6.6 Eos % (Auto) 0.5 Baso % (Auto) 0.2 Lymph # (Auto) 1.15 [place] # (Auto) 0.7 H Eos # (Auto) 0.1 Baso # (Auto) 0.0 Abs Immat Gran (auto) 0.02 Absolute Neuts (auto) 8.4 H Absolute Nucleated RBC 0.0 Nucleated RBC % 0.0 HIV 1&2 Ab/P24 Ag 4thGn Negative Post-procedural complaints: none Patient Feedback: Patient satisfied with anesthetic care.
[2020-10-16 09:30] VITALS: PULSE 65; RESP 18; O2SAT 100
[2020-10-16] MEDS: DOCUSATE SODIUM 100 MG CAPSULE PO ×2 (09:44→17:43)
[2020-10-16] MEDS: MULTIVIT/MIN/PREN/FOL AC/IRON TABLET 1 TAB PO (09:45)
--- NOTE | 2020-10-16 12:30 | PC.NURSE ---
Consult with pt., mother reports B will eagerly latch nursing with long rhythmic draws, infant A will not latch and mother will make an attempt each feeding. Both infants are supplemented and mother is pumping, giving any EBM as part of supplement. Offered assist with infant A, mother states she is content with current feeding plan. Mother states she will most likely switch to formula feeding within a few days. Mother has 4 year old twins, a one year old and new infants. Mother does not believe she cannot work with latch, bottle feeding and pumping once home. Mother is using her pump from home and does not wish to use the hospital pump. Mother is pumping without difficulties or discomfort. Mother is feeding as required and waking infant to feed if needed. Mother states she feels confident to continue current feeding plan at home. Reviewed transition to breast milk, signs of adequate intake, and engorgement/relief. Instructed to call ICP if intake/output less than required. Reviewed regular medications mother is taking. Information provided per Ashley. Reviewed community resources on the [facility] website and in the Mom/Baby guide. Information on outpatient services provided. Mother has no further questions at this time.
[2020-10-16 18:30] VITALS: BP 124/87; PULSE 64; RESP 20; TEMP 36.8; O2SAT 100
[2020-10-17] MEDS: HYDROcodone/acetaminophen (*CRX) 10-325 MG TABLET 1 TAB PO ×8 (03:00→21:14)
[2020-10-17] MEDS: IBUPROFEN 600 MG TABLET PO ×4 (05:50→18:21)
[2020-10-17] MEDS: LEVOTHYROXINE SODIUM 100 MCG TABLET PO (05:59)
--- NOTE | 2020-10-17 07:21 | P.PNOB_ITS ---
OB - PN: Subj Subjective Date/time seen: 10/17/20 07:21 Interval history: Patient doing well this AM. She is ambulating out of bed. She is tolerating PO. She reports adequate pain control. Her bleeding is normal and she reports normal lochia. She denies fever, chills, N/V. She has not yet passed flatus. Patient comments: no complaints and pain well controlled [place] baby status: doing well and nursing well OB - PN: Obj Data Labs CBC & Chem 7: 10/16/20 05:02 OB - PN A/P Plan day: 2 Plan: routine care Time Spent With Patient Time: Total time spent is greater than 50% in coordination of care (as documente d) at patient's floor/unit and/or counseling patient: Time with patient: less than 15 minutes Review of Systems Review of Systems: All systems reviewed & are unremarkable except as noted in HPI and below Exam Const: General: no acute distress Eyes: General: appearance normal, both eyes and all related structures Neck: Neck: supple and no JVD Thyroid: thyroid normal Resp: Effort & Inspection: normal respiratory effort Auscultation: clear to auscultation bilaterally Cardio: Rate: regular rate Rhythm: regular rhythm GI: Inspection: non-distended GI Palp: Yes Soft to palpation, No Tenderness to palpation present (GI) and No Guarding due to palpation present (GI) Auscultation: normal bowel sounds : General: Yes bladder normal to palpation External Female Exam: normal external appearance Speculum Exam - Vagina: normal vaginal discharge and No vaginal bleeding Speculum Exam - Cervix: nontender Bimanual exam- vagina & uterus: bladder normal to palpation and No Cervical tenderness present OB/external & speculum: No vaginal bleeding Skin: General skin exam: no rashes or lesions noted Extrem: General: normal to inspection and no edema Psych: Mental Status: mental status grossly normal Affect: normal affect
[2020-10-17 08:30] VITALS: BP 122/79; PULSE 59; RESP 18; TEMP 36.6
[2020-10-17] MEDS: MULTIVIT/MIN/PREN/FOL AC/IRON TABLET 1 TAB PO (09:16)
[2020-10-17] MEDS: DOCUSATE SODIUM 100 MG CAPSULE PO ×2 (09:16→18:20)
[2020-10-17 18:45] VITALS: BP 129/69; PULSE 66; RESP 14; TEMP 36.6; O2SAT 100
[2020-10-18] MEDS: HYDROcodone/acetaminophen (*CRX) 10-325 MG TABLET 1 TAB PO ×4 (00:08→09:16)
[2020-10-18] MEDS: IBUPROFEN 600 MG TABLET PO ×2 (00:08→06:17)
[2020-10-18] MEDS: LEVOTHYROXINE SODIUM 100 MCG TABLET PO (06:19)
--- NOTE | 2020-10-18 06:33 | P.PNOB_ITS ---
OB - PN: Subj Subjective Date/time seen: 10/18/20 06:33 Interval history: Patient doing well this AM. She is ambulating out of bed. She is tolerating PO. She reports adequate pain control. Her bleeding is normal and she reports normal lochia. She denies fever, chills, N/V. She has not yet passed flatus. Patient comments: no complaints and pain well controlled [place] baby status: doing well OB - PN: Obj Data Labs CBC & Chem 7: 10/16/20 05:02 OB - PN A/P Plan day: 3 Plan: routine care, discharge home and follow up 6 weeks (4) Time Spent With Patient Time: Total time spent is greater than 50% in coordination of care (as documented) at patient's floor/unit and/or counseling patient: Time with patient: less than 15 minutes Review of Systems Review of Systems: All systems reviewed & are unremarkable except as noted in HPI and below
[2020-10-18 08:40] VITALS: BP 127/87; PULSE 60; RESP 18; TEMP 36.1
--- NOTE | 2020-10-18 09:00 | PC.NURSE ---
Patient viewed the discharge video Mother & Baby Care, The First Two Weeks . Patient was given the opportunity and encouraged to ask questions. Patient verbalized understanding of information shared and has been given the mother/baby guide for home reference.
[2020-10-18] MEDS: DOCUSATE SODIUM 100 MG CAPSULE PO (09:16)
[2020-10-18] MEDS: MULTIVIT/MIN/PREN/FOL AC/IRON TABLET 1 TAB PO (09:16)
[2020-10-19 10:05] VITALS: BP 132/84; PULSE 62; RESP 16; TEMP 36.8; O2SAT 99
--- NOTE | 2020-10-19 12:26 | PM.DS ---
DS: Admitting Diagnosis Admitting Diagnosis Admitting Diagnosis: term iup twins prev section DS: Summary Hospital Course Hospital Course: unremarkable course Time Spent with Patient Time attestation: Total time spent providing and/or coordinating discharge services: Exam Const: General: no acute distress Eyes: General: appearance normal, both eyes and all related structures Neck: Neck: supple and no JVD Thyroid: thyroid normal Resp: Effort & Inspection: normal respiratory effort Auscultation: clear to auscultation bilaterally Cardio: Rate: regular rate Rhythm: regular rhythm GI: Inspection: non-distended GI Palp: Yes Soft to palpation, No Tenderness to palpation present (GI) and No Guarding due to palpation present (GI) Auscultation: normal bowel sounds : General: Yes bladder normal to palpation External Female Exam: normal external appearance Speculum Exam - Vagina: normal vaginal discharge and No vaginal bleeding Speculum Exam - Cervix: nontender Bimanual exam- vagina & uterus: bladder normal to palpation and No Cervical tenderness present OB/external & speculum: No vaginal bleeding Skin: General skin exam: no rashes or lesions noted Extrem: General: normal to inspection and no edema Psych: Mental Status: mental status grossly normal Affect: normal affect DS: Data Data Completed and Pending Pending studies at discharge: Pending at discharge 10/15/20 14:43 Surgical [PTH] Routine Surgical [PTH] Routine Discharge Plan Discharge Attending physician on discharge: Lalo Adams Consulting providers: Miles Sorto Discharging Clinician: Lalo Adams Patient Disposition: Home, Self-Care Activity: may shower, no straining, may drive after 2 weeks and pelvic rest Diet: heart healthy Wound Care Instructions: follow printed instructions Discharge Instructions: Education: Mom and Baby Guide and Preeclampsia Handout Given to: Mother Follow-Up: Call your delivering provider's office for an appointment to be seen in: 1 Week Mom and baby should come to the [facility] for the follow-up appointment. Appointment Date/Time: October 19, 2020 at 9:30 am What to expect at your follow-up visit: Physical Assessment Call [phone] if you are unable to keep your appointment time. BREAST CARE: * Wear a snug supportive bra. * For engorgement discomfort: Breast Feeding: * Apply warm moist washcloths * Express milk as needed to relieve engorgement * Wear loose clothing Bottle Feeding: * May apply ice packs ABDOMINAL INCISION: (if applicable) * Allow incision to air dry * Do NOT use lotions for powders on your incision * When showering, allow soap and water to run over the incision, but do not wash incision EPISIOTOMY/PERINEAL CARE: * Until bleeding stops, use your rachael bottle after urinating * Change your pad frequently throughout the day * No tub baths until seen by your physician - You may shower ACTIVITY: * Rest as much as possible. * Do not exercise or lift anything heavier than your baby (such as laundry or other children.) * Avoid stairs or driving as much as possible. * Do not put anything into the vagina. No douching, tampons, or sexual activity until seen by physician. NOTIFY PHYSICIAN IF YOU HAVE ANY QUESTIONS OR IF ANY OF THE FOLLOWING SYMPTOMS OCCUR: * If your incision becomes red, swollen, or more painful than what you have experienced in the hospital. * If your vaginal bleeding becomes foul smelling. * If your vaginal bleeding becomes more heavy than a period or if your bleeding changes from pink to bright red. However, you may pass an occasional walnut-sized clot once or twice for the first week . * If you experience a sharp, shooting pain in you calves. * If you discover a hard, reddened area on your breast or if you experience flu-like symptoms. DIET: * Eat regular,
--- NOTE | 2020-10-20 12:51 | PM.OBDSVD ---
DS: Admitting Diagnosis Admitting Diagnosis Admitting Diagnosis: IUP at 38 weeks Di/di twins Desired sterility GBS colonization DS: Discharge Diagnosis Discharge Diagnosis (1) Unwanted fertility: Code(s): Z30.09 - Encounter for other general counseling and advice on contraception Status: Acute (2) GBS bacteriuria: Code(s): R82.71 - Bacteriuria Status: Acute (3) History of section: Code(s): Z98.891 - History of uterine scar from previous surgery Status: Acute OB - DS: Summary OB Procedures : None OB Procedures Intrapartum: and Tubal ligation OB Procedures: : None Peripartum Data Procedures: Procedures Operation Date: 10/15/20 12:00 Actual Procedures Side Surgeon p Repeat Section With Bilateral Tubal Ligation With Fallopian Rings Lalo Adams MD Time Spent with Patient Time attestation: Total time spent providing and/or coordinating discharge services: DS: Data Data Completed and Pending Pending studies at discharge: Pending at discharge 10/15/20 14:43 Surgical [PTH] Routine Surgical [PTH] Routine Discharge Plan Discharge Attending physician on discharge: Lalo Adams Consulting providers: Miles Sorto Discharging Clinician: Lalo Adams Patient Disposition: Home, Self-Care Activity: may shower, no straining, may drive after 2 weeks and pelvic rest Diet: heart healthy Wound Care Instructions: follow printed instructions Discharge Instructions: Education: Mom and Baby Guide and Preeclampsia Handout Given to: Mother Follow-Up: Call your delivering provider's office for an appointment to be seen in: 1 Week Mom and baby should come to the [facility] for the follow-up appointment. Appointment Date/Time: October 19, 2020 at 9:30 am What to expect at your follow-up visit: Physical Assessment Call [phone] if you are unable to keep your appointment time. BREAST CARE: * Wear a snug supportive bra. * For engorgement discomfort: Breast Feeding: * Apply warm moist washcloths * Express milk as needed to relieve engorgement * Wear loose clothing Bottle Feeding: * May apply ice packs ABDOMINAL INCISION: (if applicable) * Allow incision to air dry * Do NOT use lotions for powders on your incision * When showering, allow soap and water to run over the incision, but do not wash incision EPISIOTOMY/PERINEAL CARE: * Until bleeding stops, use your rachael bottle after urinating * Change your pad frequently throughout the day * No tub baths until seen by your physician - You may shower ACTIVITY: * Rest as much as possible. * Do not exercise or lift anything heavier than your baby (such as laundry or other children.) * Avoid stairs or driving as much as possible. * Do not put anything into the vagina. No douching, tampons, or sexual activity until seen by physician. NOTIFY PHYSICIAN IF YOU HAVE ANY QUESTIONS OR IF ANY OF THE FOLLOWING SYMPTOMS OCCUR: * If your incision becomes red, swollen, or more painful than what you have experienced in the hospital. * If your vaginal bleeding becomes foul smelling. * If your vaginal bleeding becomes more heavy than a period or if your bleeding changes from pink to bright red. However, you may pass an occasional walnut-sized clot once or twice for the first week . * If you experience a sharp, shooting pain in you calves. * If you discover a hard, reddened area on your breast or if you experience flu-like symptoms. DIET: * Eat regular, well-balanced meals. * Drink plenty of fluids daily. If , drink to thirst. Stand Alone Forms: General Discharge Information Follow-up/Referrals: Johnny Iniguez MD [Physician] - Discharge Medications: New hydrocodone-acetaminophen 5-300 mg tablet 1 tablet PO Q6H PRN (Reason: pain) Qty: 30 RF: 0 Jenae
== END 2020-10-18 10:48 | disposition home or self-care (01) | DRG 785 ==
LOC: ANHLDR 10:02 → ANHOB2 10-16 11:27 → ANHLDR 10-19 11:27 → ANHOB2 10-19 11:27
PROVIDERS: Admitting Provider Obstetrics & Gynecology; PCP Emergency Medicine; Visit Provider Obstetrics & Gynecology
PROC: 10D00Z1 Extraction of Products of Conception, Low, Open Approach (ICD-10-PCS; CPT 59514; principal; 2020-10-15 12:00)
DX: O34.211 Maternal care for low transverse scar from previous cesarean delivery (principal); Z37.2 Twins, both liveborn; Z3A.38 38 weeks gestation of pregnancy; O30.043 Twin pregnancy, dichorionic/diamniotic, third trimester; O99.284 Endocrine, nutritional and metabolic diseases complicating childbirth; E03.9 Hypothyroidism, unspecified; J45.909 Unspecified asthma, uncomplicated; O99.52 Diseases of the respiratory system complicating childbirth; O99.824 Streptococcus B carrier state complicating childbirth; O69.81X0 Labor and delivery complicated by cord around neck, without compression, not applicable or unspecified
CPT/HCPCS: 36415; 85014; 85018; 85025; 86592; 86703; 86850; 86900; 86901; 88302; 88307; A9270; G0432; J0690; J1885; J2274; J2590; J7120

== ENCOUNTER 2022-12-01 20:03 | Emergency (ER) | payer BC, SELFPAY ==
[2022-12-01 20:10] VITALS: BP 139/67; PULSE 66; RESP 15; TEMP 36.6; O2SAT 100
--- NOTE | 2022-12-01 23:22 | ED.SKABFB ---
HPI - Skin/Abscess/Foreign Bdy General Chief complaint: Skin/Abscess/Foreign Body Stated complaint: abscess Time Seen by Provider: 12/01/22 21:39 History of Present Illness HPI narrative: 37-year-old female reports for evaluation of an abscess to her right axilla for 2 days. Patient states she noticed it 2 days ago, and doubled in size yesterday with increased pain. She reports pain from her axilla that radiates down into her right hand. Denies fever, body aches or chills. Denies history of abscesses. Related Data Home Medications Medication Instructions Recorded Confirmed albuterol sulfate 90 mcg/actuation 2 puff inhalation QID PRN wheezing 09/24/19 10/08/20 aerosol inhaler levothyroxine 100 mcg tablet 100 mcg PO DAILY 09/24/19 10/08/20 cholecalciferol (vitamin D3) 125 5,000 unit PO PRN PRN Lack of 09/27/20 10/08/20 mcg (5,000 unit) tablet (Vitamin Ulysses D3) vit no.95-ferrous 1 tablet PO DAILY 09/27/20 10/08/20 fumarate 28 mg-folic acid 800 mcg tablet () Allergies Allergy/AdvReac Type Severity Reaction Status Date / Time pollen extracts Allergy Wheezing Verified 01/18/22 15:53 Review of Systems Review of Systems: CONSTITUTIONAL: Denies fever, chills EYES: Denies visual changes, redness, or discharge. ENT: Denies rhinorrhea, congestion, sore throat, or otalgia. CARDIOVASCULAR: Denies chest pain, palpitations, or edema. RESPIRATORY: Denies cough or dyspnea. GASTROINTESTINAL: Denies abdominal pain, nausea, vomiting, or diarrhea. GENITOURINARY: Denies dysuria or hematuria. SKIN: See HPI MUSCULOSKELETAL: Denies back pain, joint pain, or myalgia. NEUROLOGIC: Denies headache, numbness, dizziness, or weakness. PSYCHIATRIC: Denies anxiety or depression. PMFSH Past Medical History Medical History Asthma Hypothyroidism Surgical History Surgical History History of section Family History Family History Mother Parkinsons Social History Social History Smoking status: Never smoker Second hand tobacco smoke exposure: No Substance use: former Gender identity (if verbalized by the patient): Female Spiritual care concerns: No Exam Narrative: GENERAL: Well-appearing, in no acute distress. HEAD: Normocephalic NECK: Supple. CHEST: No respiratory distress. Clear to auscultation, no adventitious breath sounds. HEART: Regular rate and rhythm. No murmur heard. Normal peripheral pulses. EXTREMITIES: Normal range of motion. No edema. SKIN: 1.5cm fluctuant abscess to the right axilla with surrounding induration. No overlying erythema or skin changes. Sensation intact throughout upper extremity. Radial pulse 2+. NEURO: No focal deficits. Alert and oriented x3. PSYCH: Normal mood and affect. Course Vital Signs Vital signs: Vital Signs Temperature 97.8 F 12/01/22 20:10 Pulse Rate 66 12/01/22 20:10 Respiratory Rate 15 12/01/22 20:10 Blood Pressure 139/67 12/01/22 20:10 Pulse Oximetry 100 12/01/22 20:10 Oxygen Delivery Room Air 12/01/22 20:10 Temperature 97.8 F 12/01/22 20:10 Pulse Rate 82 12/02/22 00:53 Respiratory Rate 16 12/02/22 00:53 Blood Pressure 132/84 12/02/22 00:53 Pulse Oximetry 100 12/02/22 00:53 Oxygen Delivery Room Air 12/01/22 20:10 Procedures Abscess I/D upper extremity: Date of Incision: 12/02/22 Time of Incision: 00:32 Side (if applicable): right Local Anesthetic: lidocaine 1% and with epi Amount of anesthesia used (mL): 5 Technique: incised with #11 blade Amount of fluid expressed (mL): 6 Irrigation: No Packing used?: none I&D Results: Pus and Blood Complications: pain and bleeding M
[2022-12-01] MEDS: HYDROcodone/acetaminophen (*CRX) 5-325 MG TABLET 1 TAB PO (23:28)
[2022-12-01] MEDS: IBUPROFEN 600 MG TABLET PO (23:29)
[2022-12-02] MEDS: HYDROcodone/acetaminophen (*CRX) 5-325 MG TABLET 1 TAB PO (00:43)
[2022-12-02] MEDS: SULFAMETHOXAZOLE/TRIMETHOPRIM 800/160 MG DS TABLET 1 TAB PO (00:44)
[2022-12-02 00:53] VITALS: BP 132/84; PULSE 82; RESP 16; O2SAT 100
== END 2022-12-02 00:54 | disposition home or self-care (01) ==
PROVIDERS: Emergency Provider Physician Assistant; PCP Emergency Medicine
DX: L02.411 Cutaneous abscess of right axilla (principal); J45.909 Unspecified asthma, uncomplicated; E03.9 Hypothyroidism, unspecified
CPT/HCPCS: 10060; 87070; 87147; 87181; 87186; 87205; 99283; A9270

== ENCOUNTER 2024-01-08 14:51 | Outpatient (CLI) | payer BC, SELFPAY ==
--- NOTE | ~2024-01-08 | MM_ITS ---
EXAMINATION: MM screening she BI w raffi HISTORY: Screening mammogram TECHNIQUE: Craniocaudal and mediolateral oblique 3-D tomosynthesis images were obtained and synthetic 2-D images were generated. CAD analysis was submitted and interpreted. COMPARISON: No prior mammogram is available for comparison at this institution. BREAST PARENCHYMAL COMPOSITION:Dense: The breasts are extremely dense, which lowers the sensitivity o f mammography. FINDINGS: There is asymmetry in the upper right breast on MLO view. No other parenchymal abnormality evident. No suspicious masses or calcifications. IMPRESSION: Upper right breast asymmetry. Spot compression and true lateral views, and possibly ultrasound are re commended. BI-RADS Category 0: Incomplete: Needs additional imaging evaluation. Reviewed, dictated and finalized at location . IMPRESSION: Upper right breast asymmetry. Spot compression and true lateral views, and poss ibly ultrasound are recommended. BI-RADS Category 0: Incomplete: Needs additional imaging evaluation.
== END 2024-01-08 14:52 ==
LOC: MICIMG 14:53
PROVIDERS: PCP Emergency Medicine; Visit Provider Emergency Medicine
DX: Z12.31 Encounter for screening mammogram for malignant neoplasm of breast (principal); N64.89 Other specified disorders of breast
CPT/HCPCS: 77063; 77067

== ENCOUNTER 2024-03-15 08:22 | Outpatient (CLI) | payer BC, SELFPAY ==
--- NOTE | ~2024-03-15 | MMUS_ITS ---
EXAMINATION: MM diagnostic she RT w raffi, US breast RT complete HISTORY: Follow-up right breast asymmetry TECHNIQUE: Additional 3-D tomosynthesis images of the right breast were performed and synthetic 2-D i mages were generated. CAD analysis was submitted and interpreted. High resolution complete right [address] st ultrasound was performed. COMPARISON: 01/08/2024 BREAST PARENCHYMAL COMPOSITION: Dense: The breasts are extremely dense, which lowers the sensitivity of mammography. FINDINGS: MAMMOGRAPHIC FINDINGS: There are no suspicious masses, calcifications or architectural distortion in the right breast to sug gest malignancy. ULTRASOUND: Complete US of all 4 quadrants of the breast/s and retroareolar region was reviewed. Normal heterogen eous echotexture without focal solid or cystic mass. IMPRESSION: 1. No evidence for malignancy in the right breast. 2. Routine yearly screening mammogram and regular clinical breast examination are recommended. BI-RADS Category 1: Negative Reviewed, dictated and finalized at location B. IMPRESSION: 1. No evidence for malignancy in the right breast. 2. Routine yearly screening mammogram and regular clinical breast examination a re recommended. BI-RADS Category 1: Negative
== END 2024-03-15 08:23 | disposition home or self-care (01) ==
LOC: MICIMG 08:23
PROVIDERS: PCP Emergency Medicine; Visit Provider Emergency Medicine
DX: N63.10 Unspecified lump in the right breast, unspecified quadrant (principal); R92.8 Other abnormal and inconclusive findings on diagnostic imaging of breast
CPT/HCPCS: 76641; 77061; 77065; G0279

== ENCOUNTER 2024-08-14 13:50 | Outpatient (CLI) | payer BC, SELFPAY ==
--- NOTE | ~2024-08-14 | XR_ITS ---
EXAMINATION: XR lumbar spine 2-3V DATE: 08/14/2024 14:18 INDICATION: Low back pain. Muscle spasm of back. TECHNIQUE: 3 views of lumbar spine including standing views were obtained. COMPARISON: None. FINDINGS: There is 8 degrees levocurvature of lumbar spine. Vertebral body heights are normal. There is mildly decreased disc height at L1-L2. There is multilevel [id number] facet joint osteoarthr itis. IMPRESSION: 1. Mild lumbar spondylosis. Reviewed, dictated and finalized at location A. LATING CLERK IMPRESSION: 1. Mild lumbar spondylosis.
== END 2024-08-14 13:51 | disposition home or self-care (01) ==
LOC: GOSHIMG 13:51
PROVIDERS: PCP Emergency Medicine; Visit Provider Emergency Medicine
DX: M47.816 Spondylosis without myelopathy or radiculopathy, lumbar region (principal); M62.830 Muscle spasm of back
CPT/HCPCS: 72100

== ENCOUNTER 2025-06-27 14:25 | Outpatient (CLI) | payer BC, SELFPAY ==
--- NOTE | ~2025-06-27 | MM_ITS ---
EXAMINATION: MM screening she BI w raffi HISTORY: Screening. TECHNIQUE: Craniocaudal and mediolateral oblique 3-D tomosynthesis images were obtained and synthetic 2-D images were generated. CAD analysis was submitted and interpreted. COMPARISON: 2023 and 2018 BREAST PARENCHYMAL COMPOSITION: Dense: The breasts are heterogeneously dense FINDINGS: There are waxing and waning circumscribed nodules/masses, consistent with breast cysts. No suspicious masses are seen. There are no suspicious calcifications. No unexplained architectural distortion is seen. There are no skin or nipple abnormalities identified. There is no adenopathy seen on the images submitted. IMPRESSION: No mammographic evidence to suggest malignancy is seen. The patient may return to screening mammography as per ACR guidelines. BI-RADS 2 - Benign. Reviewed, dictated and finalized at location C. ER SNAPPER
== END 2025-06-27 14:26 | disposition home or self-care (01) ==
LOC: ANHFOHIMG 14:27
PROVIDERS: PCP Emergency Medicine; Visit Provider Emergency Medicine
DX: Z12.31 Encounter for screening mammogram for malignant neoplasm of breast (principal)
CPT/HCPCS: 77063; 77067